=== PATIENT | female | born 1935 | race Caucasian/White ===

== ENCOUNTER 2021-10-11 15:51 | Emergency (ER) | payer MEDICARE ==
[~2021-10-11] VITALS: Ht 157.5 cm; Wt 49.9 kg
[2021-10-11 16:03] VITALS: BP 140/63
--- NOTE | 2021-10-11 16:04 | NUR ---
TO ER BED 4, BIBRA 839 FROM HOME C/O LOWER BACK PAIN P/S / S/P FALLING FROM 2 STEPS OF STAIRS, -LOC, HITS BACK OF HEAD BUT DENIES PAIN, AAOX3, BREATHING EVEN AND NON LABORED
--- NOTE | 2021-10-11 18:18 | NUR ---
Patient discharged to home in stable condition. Written and verbal after care instructions given. Patient verbalizes understanding of instruction.
== END 2021-10-11 18:21 | disposition home or self-care (01) ==
LOC: ER 15:56
DX: S30.0XXA Contusion of lower back and pelvis, initial encounter (principal); S09.90XA Unspecified injury of head, initial encounter; E04.1 Nontoxic single thyroid nodule; I10 Essential (primary) hypertension; W01.0XXA Fall on same level from slipping, tripping and stumbling without subsequent striking against object, initial encounter; Y93.89 Activity, other specified; Y92.89 Other specified places as the place of occurrence of the external cause; Y99.8 Other external cause status
CPT/HCPCS: 70450-TC; 72125-TC; 72131-TC